=== PATIENT | female | born 1940 | race Hispanic/Latino ===

== ENCOUNTER 2017-06-19 11:28 | Inpatient (IN) | payer OTHER, BC ==
[2017-06-19 14:21] VITALS: BMI 21.9
--- NOTE | 2017-06-19 15:39 | CP.PCM.HP ---
Addendum entered and electronically signed by Zeke Brown MD 06/19/17 20:52: Called by RN @ 2030 for fever 100.4F. Reviewed previous charts and labs. Patient seen and examined at bedside. No complaints, with minor headache. Denies chills, sob, abdominal pain, diarrhea, chest pain. Admits to mild non- productive cough. Physical exam unremarkable. Surgical wounds noted bilateral groins, devyn in place, c/d/i. No discharge/erythema/dehisensce noted. CTABL. Recheck of temperature shows the same. Will obtain blood cultures, urine cultures, cbc, cmp, CXR stat. follow up. Original Note: <Cassy Parker - Last Filed: 06/19/17 15:20> History of Present Illness - History of Present Illness History of Present Illness: 76 year old female with past medical history of COPD and PAD who presents to the TCU s/p [id number] angiogram POD #4, pt had surgery done at [facility] [place], was in the ICU after surgery and is now medically stable to start rehab in TCU. Pt seen and examined at bedside, does not have any complaints. denies any chest pain, dizziness, sob, headaches, nausea or vomiting. PMD: Dr. Velasquez Medical History: COPD, PAD Surigcal Hx: Bilateral femoral cutdown. Pkmdq-kjng-rwvmlti angiogram. Medications: MAR Allergies: Sulfa, Penicillin, Meperidine Social: Lives by herself but in the same building as her sister. Smoker about a pack per day. Present on Admission - Present on Admission Any Indicators Present on Admission: No Review of Systems - Review of Systems All systems: reviewed and no additional remarkable complaints except Review of Systems: per HPI Past Patient History - Past Medical History & Family History Past Medical History?: Yes - Past Social History Smoking Status: Heavy Smoker > 10 Cigarettes Daily - CARDIAC Hx Cardiac Disorders: Yes Hx Cardia Arrhythmia: Yes Hx Hypertension: Yes Hx Peripheral Edema: Yes Hx Peripheral Vascular Disease: Yes Other/Comment: spoke with dr muhammad office no cardiac disorders - PULMONARY Hx Chronic Obstructive Pulmonary Disease (COPD): Yes - NEUROLOGICAL Hx Neurological Disorder: No - HEENT Hx HEENT Problems: Yes Hx Cataracts: Yes Hx Glaucoma: Yes - RENAL Hx Chronic Kidney Disease: Yes Hx Kidney Stones: Yes - ENDOCRINE/METABOLIC Hx Endocrine Disorders: No - HEMATOLOGICAL/ONCOLOGICAL Hx Blood Disorders: No - INTEGUMENTARY Hx Dermatological Problems: No - MUSCULOSKELETAL/RHEUMATOLOGICAL Hx Musculoskeletal Disorders: No - GASTROINTESTINAL Hx Gastrointestinal Disorders: No - GENITOURINARY/GYNECOLOGICAL Hx Genitourinary Disorders: No - PSYCHIATRIC Hx Psychophysiologic Disorder: Yes Hx Anxiety: Yes - SURGICAL HISTORY Hx Surgeries: Yes Hx Angiogram: Yes (05/18/17) Hx Cataract Extraction: Yes (Phaco IOL) Hx Cholecystectomy: Yes Hx Eye Surgery: Yes Other/Comment: OOPHORECTOMYAND KIDNEY STONE SURGERY - ANESTHESIA Hx Anesthesia: Yes Hx Anesthesia Reactions: No Hx Malignant Hyperthermia: No Meds Allergies/Adverse Reactions: Allergies Allergy/AdvReac Type Severity Reaction Status Date / Time Sulfa (Sulfonamide Allergy Intermediate RASH Verified 05/14/17 10:07 Antibiotics) meperidine HCl [From Demerol] AdvReac Intermediate RASH Verified 05/14/17 10:07 Penicillins AdvReac Intermediate RASH Verified 05/14/17 10:07 sulfacetamide sodium AdvReac Intermediate RASH Verified 05/14/17 10:07 [From Sulfacet-R] sulfur [From Sulfacet-R] AdvReac Intermediate RASH Verified 05/14/17 10:07 Physical Exam - Constitutional Appears: No Acute Distress - Head Exam Head Exam: NORMOCEPHALIC - ENT Exam ENT Exam: Mucous Membranes Moist - Respiratory Exam Respiratory Exam: Clear to Auscultation Bilateral, NORMAL BREATHING PATTERN. absent: Rhonchi, Wheezes - Cardiovascular Exam Cardiovascular Exam: REGULAR RHYTHM, +S1, +S2 - GI/Abdominal Exam GI & Abdominal Exam: Normal Bowel Sounds, Soft. absent: Tenderness - Extremities Exam Extremities exam: Negative for: calf tenderness, pedal edema Additional comments: surgical site appears dry and clean, no discharge noted - Neurological Exam Neurological exam: Alert, CN II-XII Intact, Oriented x3 Assessment & Plan - Assessment and Plan (Free Text) Assessment: 76 y/o past medical history of COPD and PAD who is being admitted to TCU s/p Uiyag-ears-[id number] angiogram POD #4 Plan Pain management as ordered home medications resumed smoker- nicotine patch ordered Rehab as tolerated Her global compensation manager Dr. Muhammad notified regarding pt TCU stay Diet- Hearty healthy DVT prophylaxis- scds for now <Wu Velasquez - Last Filed: 06/22/17 06:59> Results - Vital Signs Recent Vital Signs: Last Vital Signs Temp 98.4 F 06/21/17 20:08 Pulse 91 H 06/21/17 21:10 Resp 20 06/21/17 20:08 BP 110/60 06/21/17 21:10 Pulse Ox 96 06/21/17 20:08 - Labs Result Diagrams: 06/19/17 20:47 06/19/17 20:47 Attending/Attestation - Attestation I have personally seen and examined this patient.: Yes I have fully participated in the care of the patient.: Yes I have reviewed all pertinent clinical information: Yes
[2017-06-19] MEDS: Metoprolol Succinate 50 mg XL Tab PO SCH (21:31)
[2017-06-19 22:25] LABS: BASO % 0.3 % (0.0-2.0); EOS # 0.1 K/uL (0.0-0.7); EOS % 0.7 % (0.0-4.0); HEMOGLOBIN 8.9 g/dL (12.0-16.0); LYMPH # 1.1 K/uL (1.0-4.3); LYMPH % 10.7 % (20.0-40.0); MEAN CELL VOLUME 91.5 fl (81.0-99.0); MEAN CORPUSCULAR HEMOGLOBIN 30.6 pg (27.0-31.0); MEAN CORPUSCULAR HGB CONC 33.4 g/dL (33.0-37.0); MEAN PLATELET VOLUME 8.2 fl (7.2-11.7); MONO # 1.5 K/uL (0.0-0.8); MONO % 14.1 % (0.0-10.0); NEUT # 7.6 K/uL (1.8-7.0); NEUT % 74.2 % (50.0-75.0); NRBC % 0.1 % (0.0-0.0); RBC 2.93 Mil/uL (3.80-5.20); RED CELL DISTRIBUTION WIDTH 14.5 % (11.5-14.5); WHITE BLOOD COUNT 10.3 K/uL (4.8-10.8)
[2017-06-19 22:27] LABS: ALBUMIN 2.5 g/dL (3.5-5.0)
[2017-06-19 22:30] LABS: ALB/GLOB RATIO 0.8 (1.0-2.1); ALT/SGPT 35 U/L (9-52); AST/SGOT 27 U/L (14-36); BLOOD UREA NITROGEN 9 mg/dl (7-17); GFR AFRICAN-AMERICAN > 60; GFR NON-AFRICAN AMERICAN > 60
[2017-06-19 22:31] LABS: CALCIUM 8.4 mg/dL (8.4-10.2)
[2017-06-20 07:49] LABS: PARTIAL THROMBOPLASTIN TIME 27.7 Seconds (25.6-37.1)
[2017-06-20] MEDS ORDERED: ALPRAZOLAM 0.5 MG PO SCH (09:00)
--- NOTE | 2017-06-20 10:21 | RAD ---
PROCEDURE: CHEST RADIOGRAPH, 1 VIEW HISTORY: fever COMPARISON: None available. FINDINGS: LUNGS: Bilateral interstitial infiltrates, right greater than left. PLEURA: No pneumothorax or pleural fluid seen. CARDIOVASCULAR: Normal. OSSEOUS STRUCTURES: No significant abnormalities. VISUALIZED UPPER ABDOMEN: Normal. OTHER FINDINGS: None. IMPRESSION: Bilateral interstitial infiltrates, right greater than left.
--- NOTE | 2017-06-20 12:20 | CP.PCM.CON ---
History of Present Illness - History of Present Illness History of Present Illness: this 76-year-old female is known to me over the last 23 years. She has a long history of hypertension and dyslipidemia. She could not tolerate statins and has not been on them. She has had a history off hyperthyroidism which was treated approximately 10 years back. She required cholecystectomy approximately 12 years back. She has been a smoker for over 50 years and has not been able to quit in spite of trying number of times. She had developed severe peripheral arterial disease and had experienced severe claudication in both lower extremities. She recently underwent revascularization procedures on both lower extremities. Now she is here for rehabilitation purposes before returning home. The patient recently underwent a nuclear stress test which did not detect any significant coronary artery disease or potential myocardial ischemia. Her left ventricular systolic function was well-preserved. The patient is severely kyphotic and has had a chronic cough related to chronic cigarette use and she also has poor effort tolerance and dyspnea on minimal exertion related to chronic lung disease. Physical examination shows an elderly female who is alert awake and coherent. At the time of this examination she was afebrile. She had a pulse rate of 74 bpm and regular and a blood pressure of 124/74 mmHg. Her jugular venous pressure was not elevated and there was no edema over her lower extremities. Her pedal pulses were feeble but distinct of present and her feet were warm and pink.surgical wounds were clean and there was no evidence of induration or discharge. The patient was severely kyphotic. Her apex was not palpable. First and second heart sounds were normal. There was no murmur or gallop. There were no rales. Her expiration was prolonged. No carotid bruits were audible. Her labs were noted.her hemoglobin was 8.9. There was no leukocytosis. Her BUN and creatinine were normal and her potassium was normal. The impression: status post revascularization of both lower extremities for severe a referral artery disease. Hypertension. Chronic cigarette use with COPD and a history of dyslipidemia and statin intolerance. The patient is stable from cardiovascular point of view. Past Patient History - Past Medical History & Family History Past Medical History?: Yes - Past Social History Smoking Status: Heavy Smoker > 10 Cigarettes Daily - CARDIAC Hx Cardiac Disorders: Yes Hx Cardia Arrhythmia: Yes Hx Hypertension: Yes Hx Peripheral Edema: Yes Hx Peripheral Vascular Disease: Yes Other/Comment: spoke with dr muhammad office no cardiac disorders - PULMONARY Hx Chronic Obstructive Pulmonary Disease (COPD): Yes - NEUROLOGICAL Hx Neurological Disorder: No - HEENT Hx HEENT Problems: Yes Hx Cataracts: Yes Hx Glaucoma: Yes - RENAL Hx Chronic Kidney Disease: Yes Hx Kidney Stones: Yes - ENDOCRINE/METABOLIC Hx Endocrine Disorders: No - HEMATOLOGICAL/ONCOLOGICAL Hx Blood Disorders: No - INTEGUMENTARY Hx Dermatological Problems: No - MUSCULOSKELETAL/RHEUMATOLOGICAL Hx Musculoskeletal Disorders: No - GASTROINTESTINAL Hx Gastrointestinal Disorders: No - GENITOURINARY/GYNECOLOGICAL Hx Genitourinary Disorders: No - PSYCHIATRIC Hx Psychophysiologic Disorder: Yes Hx Anxiety: Yes - SURGICAL HISTORY Hx Surgeries: Yes Hx Angiogram: Yes (05/18/17) Hx Cataract Extraction: Yes (Phaco IOL) Hx Cholecystectomy: Yes Hx Eye Surgery: Yes Other/Comment: OOPHORECTOMYAND KIDNEY STONE SURGERY - ANESTHESIA Hx Anesthesia: Yes Hx Anesthesia Reactions: No Hx Malignant Hyperthermia: No Meds Allergies/Adverse Reactions: Allergies Allergy/AdvReac Type Severity Reaction Status Date / Time Sulfa (Sulfonamide Allergy Intermediate RASH Verified 05/14/17 10:07 Antibiotics) meperidine HCl [From Demerol] AdvReac Intermediate RASH Verified 05/14/17 10:07 Penicillins AdvReac Intermediate RASH Verified 05/14/17 10:07 sulfacetamide sodium AdvReac Intermediate RASH Verified 05/14/17 10:07 [From Sulfacet-R] sulfur [From Sulfacet-R] AdvReac Intermediate RASH Verified 05/14/17 10:07 - Medications Medications: Current Medications Docusate Sodium (Colace) 100 mg PO BID [facility] Last Admin: 06/20/17 09:18 Dose: Not Given Home Med (Alprazolam [Alprazolam Xr]) 0.5 mg PO DAILY [facility] Home Med (Travoprost [Travatan Z]) 1 drop OU HS [facility] Metoprolol Succinate (Toprol Xl) 50 mg PO HS [facility] Last Admin: 06/19/17 21:31 Dose: 50 mg Morphine Sulfate (Morphine) 1 mg IVP Q6 PRN PRN Reason: Pain, moderate (4-7) Nicotine (Nicoderm Cq) 1 patch TD DAILY [facility] Last Admin: 06/20/17 09:15 Dose: 1 patch Tramadol HCl (Ultram) 50 mg PO Q4 PRN PRN Reason: Pain, severe (8-10) Results - Vital Signs Recent Vital Signs: Last Vital Signs Temp 98.2 F 06/20/17 08:09 Pulse 96 H 06/20/17 08:09 Resp 20 06/20/17 08:09 BP 116/56 L 06/20/17 08:09 Pulse Ox 97 06/20/17 08:09 - Labs Result Diagrams: 06/19/17 20:47 06/19/17 20:47 Labs: Laboratory Results - last 24 hr 06/19/17 06/19/17 06/20/17 20:47 20:47 06:30 WBC 10.3 RBC 2.93 L Hgb 8.9 L Hct 26.8 L MCV 91.5 MCH 30.6 MCHC 33.4 RDW 14.5 Plt Count 161 MPV 8.2 Neut % (Auto) 74.2 Lymph % (Auto) 10.7 L Phelps % (Auto) 14.1 H Eos % (Auto) 0.7 Baso % (Auto) 0.3 Neut # 7.6 H Lymph # 1.1 Phelps # 1.5 H Eos # 0.1 Baso # 0.0 PT 11.0 INR 1.0 APTT 27.7 Sodium 134 Potassium 3.7 Chloride 98 Carbon Dioxide 32 H Anion Gap 8 L BUN 9 Creatinine 0.7 Est GFR ( Amer) > 60 Est GFR (Non-Af Amer) > 60 Random Glucose 94 Calcium 8.4 Total Bilirubin 0.6 AST 27 ALT 35 Alkaline Phosphatase 71 Total Protein 5.4 L Albumin 2.5 L D Globulin 3.0 Albumin/Globulin Ratio 0.8 L
[2017-06-20] MEDS: Metoprolol Succinate 50 mg XL Tab PO SCH (21:16)
--- NOTE | 2017-06-20 22:45 | CP.PCM.PN ---
Subjective - Date & Time of Evaluation Date of Evaluation: 06/20/17 Time of Evaluation: 08:20 - Subjective Subjective: Patient seen and examined at bedside, in no acute distress. Denies chest pain, SOB, weakness or dizziness. Reports minimal non-productive cough and mild discomfort from proximal lower extremities at the sites of entry for her vascular procedure. Otherwise patient has no other concerns or complaints. Objective - Vital Signs/Intake and Output Vital Signs (last 24 hours): Temp Pulse Resp BP Pulse Ox 98.8 F 92 H 18 108/70 93 L 06/20/17 21:06 06/20/17 21:16 06/20/17 21:06 06/20/17 21:16 06/20/17 21:06 - Medications Medications: Current Medications Docusate Sodium (Colace) 100 mg PO BID [facility] Last Admin: 06/20/17 17:04 Dose: Not Given Home Med (Alprazolam [Alprazolam Xr]) 0.5 mg PO DAILY [facility] Home Med (Travoprost [Travatan Z]) 1 drop OU HS [facility] Metoprolol Succinate (Toprol Xl) 50 mg PO [facility] Last Admin: 06/20/17 21:16 Dose: 50 mg Morphine Sulfate (Morphine) 1 mg IVP Q6 PRN PRN Reason: Pain, moderate (4-7) Nicotine (Nicoderm Cq) 1 patch TD DAILY [facility] Last Admin: 06/20/17 09:15 Dose: 1 patch Tramadol HCl (Ultram) 50 mg PO Q4 PRN PRN Reason: Pain, severe (8-10) Last Admin: 06/20/17 17:00 Dose: 50 mg - Labs Labs: 06/19/17 20:47 06/19/17 20:47 PT 11.0 Seconds (9.8-13.1) 06/20/17 06:30 INR 1.0 (0.9-1.2) 06/20/17 06:30 APTT 27.7 Seconds (25.6-37.1) 06/20/17 06:30 - Constitutional Appears: Non-toxic, No Acute Distress - Head Exam Head Exam: ATRAUMATIC, NORMOCEPHALIC - Eye Exam Eye Exam: EOMI, PERRL - ENT Exam ENT Exam: Mucous Membranes Moist - Neck Exam Neck Exam: Full ROM. absent: Lymphadenopathy - Respiratory Exam Respiratory Exam: Clear to Ausculation Bilateral, NORMAL BREATHING PATTERN - Cardiovascular Exam Cardiovascular Exam: REGULAR RHYTHM, +S1, +S2 - GI/Abdominal Exam GI & Abdominal Exam: Soft, Normal Bowel Sounds. absent: Tenderness - Extremities Exam Extremities Exam: Full ROM (bilateral proximal femoral dressing c/d/i; stasis dermatitis in b/l LE L>R), Pedal Edema (left foot , +2; b/l ) - Back Exam Back Exam: absent: CVA tenderness (L), CVA tenderness (R) - Neurological Exam Neurological Exam: Alert, Awake, CN II-XII Intact, Oriented x3 - Psychiatric Exam Psychiatric exam: Normal Affect, Normal Mood - Skin Skin Exam: Dry, Intact, Warm Assessment and Plan - Assessment and Plan (Free Text) Assessment: 76 yr old F with PMHx including COPD, HTN, PAD and dyslipidemia admitted to TCU s/p [id number]-[id number] angiogram POD #5. Patient is stable, remained afebrile today. Plan Fever -acute, Tmax 100.4, resolved with Tylenol once -f/u BCx, UCx Tiezt-mmsj-vyodbmu angiogram POD #5 -Pain management as ordered -home medications resumed -smoker- nicotine patch ordered -Rehab as tolerated -Cardiology consult appreciated- Dr. Garcia: pt is stable from cardiac point of view -Diet- Hearty healthy DVT prophylaxis -scds for now
[2017-06-21] MEDS: Vitamin A/D oint 60G TP SCH ×3 (08:31→16:42)
[2017-06-21] MEDS ORDERED: Morphine 30 mg Immediate Release Tab PO PRN (09:54)
--- NOTE | 2017-06-21 11:39 | CP.PCM.PN ---
Subjective - Date & Time of Evaluation Date of Evaluation: 06/21/17 Time of Evaluation: 09:20 - Subjective Subjective: Pt seen and examined at bedside, reports having pain at site of surgery, pain medication helped a little not did not resolve it completely. otherwise no other complaints. nurses note and PT notes reviewed Objective - Vital Signs/Intake and Output Vital Signs (last 24 hours): Temp Pulse Resp BP Pulse Ox 97.9 F 86 20 126/63 97 06/21/17 08:29 06/21/17 08:29 06/21/17 08:29 06/21/17 08:29 06/21/17 08:29 - Medications Medications: Current Medications Docusate Sodium (Colace) 100 mg PO BID [facility] Last Admin: 06/21/17 08:29 Dose: Not Given Home Med (Alprazolam [Alprazolam Xr]) 0.5 mg PO DAILY [facility] Home Med (Travoprost [Travatan Z]) 1 drop OU HS [facility] Metoprolol Succinate (Toprol Xl) 50 mg PO HS [facility] Last Admin: 06/20/17 21:16 Dose: 50 mg Morphine Sulfate (Morphine Immediate Release Tab) 30 mg PO Q4 PRN PRN Reason: Pain, severe (8-10) Nicotine (Nicoderm Cq) 1 patch TD DAILY [facility] Last Admin: 06/21/17 08:29 Dose: 1 patch Tramadol HCl (Ultram) 100 mg PO Q6 PRN PRN Reason: Pain, moderate (4-7) Vitamin A (Vitamin A&D) 2 applic TP Q8 [facility] Last Admin: 06/21/17 08:31 Dose: 2 applic - Labs Labs: 06/19/17 20:47 06/19/17 20:47 PT 11.0 Seconds (9.8-13.1) 06/20/17 06:30 INR 1.0 (0.9-1.2) 06/20/17 06:30 APTT 27.7 Seconds (25.6-37.1) 06/20/17 06:30 - Constitutional Appears: Non-toxic, No Acute Distress - Head Exam Head Exam: NORMOCEPHALIC - Eye Exam Eye Exam: Normal appearance - ENT Exam ENT Exam: Mucous Membranes Moist - Respiratory Exam Respiratory Exam: Rhonchi, NORMAL BREATHING PATTERN - Cardiovascular Exam Cardiovascular Exam: REGULAR RHYTHM, +S1, +S2 - GI/Abdominal Exam GI & Abdominal Exam: Soft, Normal Bowel Sounds. absent: Tenderness - Extremities Exam Extremities Exam: absent: Calf Tenderness, Pedal Edema Additional comments: incision area neatly dressed, no purulent discharge noted. - Neurological Exam Neurological Exam: Alert, Awake, Oriented x3 Assessment and Plan - Assessment and Plan (Free Text) Assessment: 76 yr old F with PMHx including COPD, HTN, PAD and dyslipidemia admitted to TCU s/p Tvqxk-lpky-nshcryg angiogram POD #6. Patient is stable, remained afebrile today. Plan Fever (has been Afebrile for 48hrs as of today) -Tmax 100.4, resolved with Tylenol once -cultures no growth as off today -chest xray compared to previous xray no acute changes Outyo-aehr-gcvhaxx angiogram POD #6 -Pain management as ordered -home medications resumed -smoker- nicotine patch ordered -Rehab as tolerated -Cardiology consult appreciated- Dr. Garcia: pt is stable from cardiac point of view -Diet- Hearty healthy DVT prophylaxis -scds for now
[2017-06-21] MEDS: Metoprolol Succinate 50 mg XL Tab PO SCH (21:10)
[2017-06-21] MEDS: Patient's Own Med (Travoprost [Travatan Z] 1 DROP) OU SCH ×2 (21:13→21:15)
[2017-06-22] MEDS: Vitamin A/D oint 60G TP SCH (00:58)
--- NOTE | 2017-06-22 07:42 | CP.PCM.PN ---
Addendum entered and electronically signed by Phyllis Kessler MD 06/22/17 14 :08: PMHx obtained from PMD includes: Exfoliative dermatitis of b/l LE, ASHD ( arteriosclerotic heart disease), COPD/emphysema, osteoporosis, Kyphoscoliosis and anxiety. Original Note: <Phyllis Kessler - Last Filed: 06/22/17 13:32> Subjective - Date & Time of Evaluation Date of Evaluation: 06/22/17 Time of Evaluation: 07:20 - Subjective Subjective: Patient seen and examined at bedside with Dr. Velasquez, no acute events overnight. Denies chest pain, SOB, weakness or dizziness. Tolerating PO diet, has normal urine and stool output. Objective - Vital Signs/Intake and Output Vital Signs (last 24 hours): Temp Pulse Resp BP Pulse Ox 98.4 F 91 H 20 110/60 96 06/21/17 20:08 06/21/17 21:10 06/21/17 20:08 06/21/17 21:10 06/21/17 20:08 - Medications Medications: Current Medications Alprazolam (Xanax) 0.25 mg PO Q12 PRN PRN Reason: Anxiety Stop: 06/28/17 13:30 Clobetasol Propionate (Temovate Cream) 1 applic TOP BID [facility] Docusate Sodium (Colace) 100 mg PO BID [facility] Last Admin: 06/21/17 16:21 Dose: Not Given Home Med (Travoprost [Travatan Z]) 1 drop OU [facility] Last Admin: 06/21/17 21:15 Dose: Not Given Metoprolol Succinate (Toprol Xl) 50 mg PO HS [facility] Last Admin: 06/21/17 21:10 Dose: 50 mg Morphine Sulfate (Morphine Immediate Release Tab) 30 mg PO Q4 PRN PRN Reason: Pain, severe (8-10) Nicotine (Nicoderm Cq) 1 patch TD DAILY [facility] Last Admin: 06/21/17 08:29 Dose: 1 patch Tramadol HCl (Ultram) 100 mg PO Q6 PRN PRN Reason: Pain, moderate (4-7) Last Admin: 06/21/17 16:41 Dose: 100 mg - Labs Labs: 06/19/17 20:47 06/19/17 20:47 PT 11.0 Seconds (9.8-13.1) 06/20/17 06:30 INR 1.0 (0.9-1.2) 06/20/17 06:30 APTT 27.7 Seconds (25.6-37.1) 06/20/17 06:30 - Constitutional Appears: Non-toxic, No Acute Distress - Head Exam Head Exam: ATRAUMATIC, NORMOCEPHALIC - Eye Exam Eye Exam: EOMI, PERRL - ENT Exam ENT Exam: Mucous Membranes Moist - Neck Exam Neck Exam: Full ROM - Respiratory Exam Respiratory Exam: NORMAL BREATHING PATTERN - Cardiovascular Exam Cardiovascular Exam: REGULAR RHYTHM, +S1, +S2 - GI/Abdominal Exam GI & Abdominal Exam: Soft, Normal Bowel Sounds - Extremities Exam Extremities Exam: Full ROM (stasis dermatitis bilateral lower extremities) - Back Exam Back Exam: absent: CVA tenderness (L), CVA tenderness (R) - Neurological Exam Neurological Exam: Alert, Awake, CN II-XII Intact, Oriented x3 - Psychiatric Exam Psychiatric exam: Normal Affect, Normal Mood - Skin Skin Exam: Dry, Intact, Warm Assessment and Plan - Assessment and Plan (Free Text) Assessment: 76 yr old F with PMHx including COPD, HTN, PAD and dyslipidemia admitted to TCU s/p Kydvl-zaeo-ubwasft angiogram POD #7. Patient is stable. Plan: Yiqyz-ffkq-zcxgszz angiogram POD #7 -Pain management as ordered -home medications resumed -smoker- nicotine patch ordered -Rehab as tolerated -Cardiology consult appreciated- Dr. Garcia: pt is stable from cardiac point of view -Diet- Hearty healthy DVT prophylaxis -scds for now <Wu Velasquez - Last Filed: 06/23/17 06:50> Objective - Vital Signs/Intake and Output Vital Signs (last 24 hours): Temp Pulse Resp BP Pulse Ox 98.6 F 92 H 20 135/86 99 06/22/17 21:17 06/22/17 21:41 06/22/17 21:17 06/22/17 21:17 06/22/17 21:17 - Medications Medications: Current Medications Alprazolam (Xanax) 0.25 mg PO Q12 PRN PRN Reason: Anxiety Stop: 06/28/17 13:30 Clobetasol Propionate (Temovate Cream) 1 applic TOP BID [facility] Last Admin: 06/22/17 16:36 Dose: 1 units Docusate Sodium (Colace) 100 mg PO BID [facility] Last Admin: 06/22/17 16:36 Dose: Not Given Enoxaparin Sodium (Lovenox) 40 mg SC DAILY [facility] PRN Reason: Protocol Ferrous Sulfate (Feosol) 325 mg PO DAILY [facility] Last Admin: 06/22/17 12:42 Dose: 325 mg Home Med (Travoprost [Travatan Z]) 1 drop OU HS [facility] Last Admin: 06/22/17 21:43 Dose: 1 drop Metoprolol Succinate (Toprol Xl) 50 mg PO HS [facility] Last Admin: 06/22/17 21:41 Dose: 50 mg Nicotine (Nicoderm Cq) 1 patch TD DAILY [facility] Last Admin: 06/22/17 08:33 Dose: 1 patch Tramadol HCl (Ultram) 100 mg PO Q6 PRN PRN Reason: Pain, moderate (4-7) Last Admin: 06/22/17 23:41 Dose: 100 mg - Labs Labs: 06/19/17 20:47 06/19/17 20:47 PT 11.0 Seconds (9.8-13.1) 06/20/17 06:30 INR 1.0 (0.9-1.2) 06/20/17 06:30 APTT 27.7 Seconds (25.6-37.1) 06/20/17 06:30 Attending/Attestation - Attestation I have personally seen and examined this patient.: Yes I have fully participated in the care of the patient.: Yes I have reviewed all pertinent clinical information, including history, physical exam and plan: Yes
--- NOTE | 2017-06-22 11:04 | CP.PCM.PN ---
Subjective - Date & Time of Evaluation Date of Evaluation: 06/22/17 Time of Evaluation: 10:50 - Subjective Subjective: Surgical pain when she walks Afebrile Feet pink and warm Surgical wounds clean, without discharge PT team reports steady progress Objective - Vital Signs/Intake and Output Vital Signs (last 24 hours): Temp Pulse Resp BP Pulse Ox 98.2 F 97 H 20 140/64 99 06/22/17 08:27 06/22/17 08:27 06/22/17 08:27 06/22/17 08:27 06/22/17 08:27 - Medications Medications: Current Medications Alprazolam (Xanax) 0.25 mg PO Q12 PRN PRN Reason: Anxiety Stop: 06/28/17 13:30 Clobetasol Propionate (Temovate Cream) 1 applic TOP BID [facility] Docusate Sodium (Colace) 100 mg PO BID [facility] Last Admin: 06/22/17 08:33 Dose: Not Given Home Med (Travoprost [Travatan Z]) 1 drop OU HS [facility] Last Admin: 06/21/17 21:15 Dose: Not Given Metoprolol Succinate (Toprol Xl) 50 mg PO HS [facility] Last Admin: 06/21/17 21:10 Dose: 50 mg Nicotine (Nicoderm Cq) 1 patch TD DAILY [facility] Last Admin: 06/22/17 08:33 Dose: 1 patch Tramadol HCl (Ultram) 100 mg PO Q6 PRN PRN Reason: Pain, moderate (4-7) Last Admin: 06/21/17 16:41 Dose: 100 mg - Labs Labs: 06/19/17 20:47 06/19/17 20:47 PT 11.0 Seconds (9.8-13.1) 06/20/17 06:30 INR 1.0 (0.9-1.2) 06/20/17 06:30 APTT 27.7 Seconds (25.6-37.1) 06/20/17 06:30
[2017-06-22] MEDS: Metoprolol Succinate 50 mg XL Tab PO SCH (21:41)
[2017-06-22] MEDS: Patient's Own Med (Travoprost [Travatan Z] 1 DROP) OU SCH (21:43)
[2017-06-23] MEDS: Enoxaparin 40 mg Syringe SC SCH (09:09)
--- NOTE | 2017-06-23 09:51 | CP.PCM.CON ---
History of Present Illness - History of Present Illness History of Present Illness: 76 year old F seen at bedside at the request for podiatry consultation. Patient is complaining of thickened and elongated nails she is unable to trim herself. Patient states she follows housing counselor Dr. Woodson as an outpatient. Patient denies N/V/F/D/C/SOB/calf pain. No other pedal complaints at this time. Review of Systems - Review of Systems All systems: reviewed and no additional remarkable complaints except (as per HPI ) Past Patient History - Past Medical History & Family History Past Medical History?: Yes - Past Social History Smoking Status: Heavy Smoker > 10 Cigarettes Daily - CARDIAC Hx Cardiac Disorders: Yes Hx Cardia Arrhythmia: Yes Hx Hypertension: Yes Hx Peripheral Edema: Yes Hx Peripheral Vascular Disease: Yes Other/Comment: spoke with dr muhammad office no cardiac disorders - PULMONARY Hx Chronic Obstructive Pulmonary Disease (COPD): Yes - NEUROLOGICAL Hx Neurological Disorder: No - HEENT Hx HEENT Problems: Yes Hx Cataracts: Yes Hx Glaucoma: Yes - RENAL Hx Chronic Kidney Disease: Yes Hx Kidney Stones: Yes - ENDOCRINE/METABOLIC Hx Endocrine Disorders: No - HEMATOLOGICAL/ONCOLOGICAL Hx Blood Disorders: No - INTEGUMENTARY Hx Dermatological Problems: No - MUSCULOSKELETAL/RHEUMATOLOGICAL Hx Musculoskeletal Disorders: No - GASTROINTESTINAL Hx Gastrointestinal Disorders: No - GENITOURINARY/GYNECOLOGICAL Hx Genitourinary Disorders: No - PSYCHIATRIC Hx Psychophysiologic Disorder: Yes Hx Anxiety: Yes - SURGICAL HISTORY Hx Surgeries: Yes Hx Angiogram: Yes (05/18/17) Hx Cataract Extraction: Yes (Phaco IOL) Hx Cholecystectomy: Yes Hx Eye Surgery: Yes Other/Comment: OOPHORECTOMYAND KIDNEY STONE SURGERY - ANESTHESIA Hx Anesthesia: Yes Hx Anesthesia Reactions: No Hx Malignant Hyperthermia: No Meds Allergies/Adverse Reactions: Allergies Allergy/AdvReac Type Severity Reaction Status Date / Time Sulfa (Sulfonamide Allergy Intermediate RASH Verified 05/14/17 10:07 Antibiotics) meperidine HCl [From Demerol] AdvReac Intermediate RASH Verified 05/14/17 10:07 Penicillins AdvReac Intermediate RASH Verified 05/14/17 10:07 sulfacetamide sodium AdvReac Intermediate RASH Verified 05/14/17 10:07 [From Sulfacet-R] sulfur [From Sulfacet-R] AdvReac Intermediate RASH Verified 05/14/17 10:07 - Medications Medications: Current Medications Alprazolam (Xanax) 0.25 mg PO Q12 PRN PRN Reason: Anxiety Stop: 06/28/17 13:30 Last Admin: 06/23/17 08:19 Dose: 0.25 mg Clobetasol Propionate (Temovate Cream) 1 applic TOP BID [facility] Last Admin: 06/23/17 08:16 Dose: 1 units Docusate Sodium (Colace) 100 mg PO BID [facility] Last Admin: 06/23/17 08:15 Dose: Not Given Enoxaparin Sodium (Lovenox) 40 mg SC DAILY [facility] PRN Reason: Protocol Last Admin: 06/23/17 09:09 Dose: 40 mg Ferrous Sulfate (Feosol) 325 mg PO DAILY [facility] Last Admin: 06/23/17 08:13 Dose: 325 mg Home Med (Travoprost [Travatan Z]) 1 drop OU HS [facility] Last Admin: 06/22/17 21:43 Dose: 1 drop Metoprolol Succinate (Toprol Xl) 50 mg PO HS [facility] Last Admin: 06/22/17 21:41 Dose: 50 mg Nicotine (Nicoderm Cq) 1 patch TD DAILY [facility] Last Admin: 06/23/17 08:14 Dose: 1 patch Tramadol HCl (Ultram) 100 mg PO Q6 PRN PRN Reason: Pain, moderate (4-7) Last Admin: 06/22/17 23:41 Dose: 100 mg Physical Exam - Constitutional Appears: Well, Non-toxic, No Acute Distress - Extremities Exam Additional comments: Vasc: DP pulses 1/4 b/l. PT pulses nonpalpable. CFT <3 seconds to all digits. TG WNL. Perimalleolar edema noted. Neuro: Gross sensation intact Derm: Nails 1-5 b/l are thickened, elongated, and dystrophic with the presence of subungual debris Ortho: no POP foot and ankle b/l. - Neurological Exam Neurological exam: Alert, Oriented x3 - Psychiatric Exam Psychiatric exam: Normal Affect, Normal Mood Results - Vital Signs Recent Vital Signs: Last Vital Signs Temp 97.8 F 06/23/17 07:51 Pulse 83 06/23/17 07:51 Resp 20 06/23/17 07:51 BP 115/66 06/23/17 07:51 Pulse Ox 99 06/23/17 07:51 - Labs Result Diagrams: 06/19/17 20:47 06/19/17 20:47 Assessment & Plan - Assessment and Plan (Free Text) Assessment: 76 year old female with onychomycosis Plan: Patient seen and evaluated at bedside Discussed with attending, Dr. Woodson Chart, labs, vitals reviewed - afebrile Nails 1-5 b/l debrided in thickness and length without incident Stable from podiatry standpoint Thank you for this consult, please re-consult again as needed
--- NOTE | 2017-06-23 10:05 | CP.PCM.PN ---
<Viji Cotton - Last Filed: 06/23/17 15:28> Subjective - Date & Time of Evaluation Date of Evaluation: 06/23/17 Time of Evaluation: 07:10 - Subjective Subjective: No acute events overnight. Patient seen and examined with Dr. Velasquez. Patient feels well, complaints only of RLE skin changes. Continue with physical therapy. She is tolerating a regular diet. Objective - Vital Signs/Intake and Output Vital Signs (last 24 hours): Temp Pulse Resp BP Pulse Ox 97.8 F 83 20 115/66 99 06/23/17 07:51 06/23/17 07:51 06/23/17 07:51 06/23/17 07:51 06/23/17 07:51 - Medications Medications: Current Medications Alprazolam (Xanax) 0.25 mg PO Q12 PRN PRN Reason: Anxiety Stop: 06/28/17 13:30 Last Admin: 06/23/17 08:19 Dose: 0.25 mg Clobetasol Propionate (Temovate Cream) 1 applic TOP BID [facility] Last Admin: 06/23/17 08:16 Dose: 1 units Docusate Sodium (Colace) 100 mg PO BID [facility] Last Admin: 06/23/17 08:15 Dose: Not Given Enoxaparin Sodium (Lovenox) 40 mg SC DAILY [facility] PRN Reason: Protocol Last Admin: 06/23/17 09:09 Dose: 40 mg Ferrous Sulfate (Feosol) 325 mg PO DAILY [facility] Last Admin: 06/23/17 08:13 Dose: 325 mg Home Med (Travoprost [Travatan Z]) 1 drop OU [facility] Last Admin: 06/22/17 21:43 Dose: 1 drop Metoprolol Succinate (Toprol Xl) 50 mg PO HS [facility] Last Admin: 06/22/17 21:41 Dose: 50 mg Nicotine (Nicoderm Cq) 1 patch TD DAILY [facility] Last Admin: 06/23/17 08:14 Dose: 1 patch Tramadol HCl (Ultram) 100 mg PO Q6 PRN PRN Reason: Pain, moderate (4-7) Last Admin: 06/22/17 23:41 Dose: 100 mg - Labs Labs: 06/19/17 20:47 06/19/17 20:47 PT 11.0 Seconds (9.8-13.1) 06/20/17 06:30 INR 1.0 (0.9-1.2) 06/20/17 06:30 APTT 27.7 Seconds (25.6-37.1) 06/20/17 06:30 - Constitutional Appears: Well - Head Exam Head Exam: ATRAUMATIC, NORMAL INSPECTION, NORMOCEPHALIC - Eye Exam Eye Exam: EOMI, Normal appearance, PERRL - ENT Exam ENT Exam: Mucous Membranes Moist Additional comments: poor dentition - Neck Exam Neck Exam: Full ROM, Normal Inspection. absent: Lymphadenopathy - Respiratory Exam Respiratory Exam: Decreased Breath Sounds, NORMAL BREATHING PATTERN - Cardiovascular Exam Cardiovascular Exam: REGULAR RHYTHM, +S1, +S2 - GI/Abdominal Exam GI & Abdominal Exam: Soft, Tenderness (mild left abdomen), Normal Bowel Sounds - Extremities Exam Extremities Exam: absent: Pedal Edema - Neurological Exam Neurological Exam: Alert, Awake, CN II-XII Intact, Oriented x3. absent: Motor Sensory Deficit - Psychiatric Exam Psychiatric exam: Normal Affect, Normal Mood - Skin Skin Exam: Dry, Warm. absent: Cyanosis Additional comments: LLE: skin visibly peeling with mild erythema up to ankle. Assessment and Plan - Assessment and Plan (Free Text) Assessment: POD#8 s/p bilateral femoral endarterectomy with bilateral femoral and common iliac stents 76 yr old F with PMHx including COPD, HTN, PAD and dyslipidemia admitted to TCU s/p Patient is stable. Plan: POD #8 s/p bilateral femoral endarterectomy with bilateral femoral and common iliac stents -Pain management as ordered -home medications resumed -smoker- nicotine patch ordered -Rehab as tolerated -Cardiology consult appreciated- Dr. Garcia: pt is stable from cardiac point of view -Diet- Hearty healthy Exfoliative dermatitis of left foot -appreciate podiatry consult. -clobetasol bid DVT prophylaxis -scds for now <Wu Velasquez - Last Filed: 06/25/17 06:38> Objective - Vital Signs/Intake and Output Vital Signs (last 24 hours): Temp Pulse Resp BP Pulse Ox 98.6 F 78 20 121/59 L 91 L 06/24/17 20:29 06/24/17 21:32 06/24/17 20:29 06/24/17 20:29 06/24/17 20:29 - Medications Medications: Current Medications Alprazolam (Xanax) 0.25 mg PO Q12 PRN PRN Reason: Anxiety Stop: 06/28/17 13:30 Last Admin: 06/23/17 08:19 Dose: 0.25 mg Clobetasol Propionate (Temovate Cream) 1 applic TOP BID [facility] Last Admin: 06/24/17 16:36 Dose: 1 units Docusate Sodium (Colace) 100 mg PO BID [facility] Last Admin: 06/24/17 16:36 Dose: 100 mg Enoxaparin Sodium (Lovenox) 40 mg SC DAILY [facility] PRN Reason: Protocol Last Admin: 06/24/17 08:23 Dose: 40 mg Ferrous Sulfate (Feosol) 325 mg PO DAILY [facility] Last Admin: 06/24/17 08:23 Dose: 325 mg Home Med (Travoprost [Travatan Z]) 1 drop OU HS [facility] Last Admin: 06/24/17 21:34 Dose: 1 drop Metoprolol Succinate (Toprol Xl) 50 mg PO HS [facility] Last Admin: 06/24/17 21:32 Dose: 50 mg Nicotine (Nicoderm Cq) 1 patch TD DAILY [facility] Last Admin: 06/24/17 08:23 Dose: 1 patch Tramadol HCl (Ultram) 100 mg PO Q6 PRN PRN Reason: Pain, moderate (4-7) Last Admin: 06/24/17 19:57 Dose: 100 mg - Labs Labs: 06/24/17 06:15 06/19/17 20:47 PT 11.0 Seconds (9.8-13.1) 06/20/17 06:30 INR 1.0 (0.9-1.2) 06/20/17 06:30 APTT 27.7 Seconds (25.6-37.1) 06/20/17 06:30 Attending/Attestation - Attestation I have personally seen and examined this patient.: Yes I have fully participated in the care of the patient.: Yes I have reviewed all pertinent clinical information, including history, physical exam and plan: Yes
[2017-06-23] MEDS: Metoprolol Succinate 50 mg XL Tab PO SCH (21:27)
[2017-06-23] MEDS: Patient's Own Med (Travoprost [Travatan Z] 1 DROP) OU SCH (21:28)
[2017-06-24 07:07] LABS: HEMOGLOBIN 8.8 g/dL (12.0-16.0); MEAN CELL VOLUME 90.2 fl (81.0-99.0); MEAN CORPUSCULAR HEMOGLOBIN 30.4 pg (27.0-31.0); MEAN CORPUSCULAR HGB CONC 33.7 g/dL (33.0-37.0); RBC 2.89 Mil/uL (3.80-5.20); WHITE BLOOD COUNT 6.8 K/uL (4.8-10.8)
[2017-06-24] MEDS: Enoxaparin 40 mg Syringe SC SCH (08:23)
--- NOTE | 2017-06-24 10:17 | CP.PCM.PN ---
Subjective - Date & Time of Evaluation Date of Evaluation: 06/24/17 Time of Evaluation: 10:00 - Subjective Subjective: Continues to make progress Surgical pain much less Doing well at PT Appetite good Surgical wounds healing well Objective - Vital Signs/Intake and Output Vital Signs (last 24 hours): Temp Pulse Resp BP Pulse Ox 98.1 F 79 20 115/60 99 06/24/17 08:12 06/24/17 08:12 06/24/17 08:12 06/24/17 08:12 06/24/17 08:12 - Medications Medications: Current Medications Alprazolam (Xanax) 0.25 mg PO Q12 PRN PRN Reason: Anxiety Stop: 06/28/17 13:30 Last Admin: 06/23/17 08:19 Dose: 0.25 mg Clobetasol Propionate (Temovate Cream) 1 applic TOP BID [facility] Last Admin: 06/24/17 08:24 Dose: 1 units Docusate Sodium (Colace) 100 mg PO BID [facility] Last Admin: 06/24/17 08:23 Dose: 100 mg Enoxaparin Sodium (Lovenox) 40 mg SC DAILY [facility] PRN Reason: Protocol Last Admin: 06/24/17 08:23 Dose: 40 mg Ferrous Sulfate (Feosol) 325 mg PO DAILY [facility] Last Admin: 06/24/17 08:23 Dose: 325 mg Home Med (Travoprost [Travatan Z]) 1 drop OU [facility] Last Admin: 06/23/17 21:28 Dose: 1 drop Metoprolol Succinate (Toprol Xl) 50 mg PO HS [facility] Last Admin: 06/23/17 21:27 Dose: 50 mg Nicotine (Nicoderm Cq) 1 patch TD DAILY [facility] Last Admin: 06/24/17 08:23 Dose: 1 patch Tramadol HCl (Ultram) 100 mg PO Q6 PRN PRN Reason: Pain, moderate (4-7) Last Admin: 06/23/17 22:59 Dose: 100 mg - Labs Labs: 06/24/17 06:15 06/19/17 20:47 PT 11.0 Seconds (9.8-13.1) 06/20/17 06:30 INR 1.0 (0.9-1.2) 06/20/17 06:30 APTT 27.7 Seconds (25.6-37.1) 06/20/17 06:30
--- NOTE | 2017-06-24 12:26 | CP.PCM.PN ---
<Viji Cotton - Last Filed: 06/24/17 12:27> Subjective - Date & Time of Evaluation Date of Evaluation: 06/24/17 Time of Evaluation: 07:10 - Subjective Subjective: PAtient seen and examined with Dr. Eli. She is doing well. Has some surgical pain in left abdomen, otherwise no complaints. She is doing well with PT. Podiatry evaluated the patient yesterday , appreciate their recommendations. Will continue present management. Objective - Vital Signs/Intake and Output Vital Signs (last 24 hours): Temp Pulse Resp BP Pulse Ox 98.1 F 79 20 115/60 99 06/24/17 08:12 06/24/17 08:12 06/24/17 08:12 06/24/17 08:12 06/24/17 08:12 - Medications Medications: Current Medications Alprazolam (Xanax) 0.25 mg PO Q12 PRN PRN Reason: Anxiety Stop: 06/28/17 13:30 Last Admin: 06/23/17 08:19 Dose: 0.25 mg Clobetasol Propionate (Temovate Cream) 1 applic TOP BID [facility] Last Admin: 06/24/17 08:24 Dose: 1 units Docusate Sodium (Colace) 100 mg PO BID [facility] Last Admin: 06/24/17 08:23 Dose: 100 mg Enoxaparin Sodium (Lovenox) 40 mg SC DAILY [facility] PRN Reason: Protocol Last Admin: 06/24/17 08:23 Dose: 40 mg Ferrous Sulfate (Feosol) 325 mg PO DAILY [facility] Last Admin: 06/24/17 08:23 Dose: 325 mg Home Med (Travoprost [Travatan Z]) 1 drop OU HS [facility] Last Admin: 06/23/17 21:28 Dose: 1 drop Metoprolol Succinate (Toprol Xl) 50 mg PO HS [facility] Last Admin: 06/23/17 21:27 Dose: 50 mg Nicotine (Nicoderm Cq) 1 patch TD DAILY [facility] Last Admin: 06/24/17 08:23 Dose: 1 patch Tramadol HCl (Ultram) 100 mg PO Q6 PRN PRN Reason: Pain, moderate (4-7) Last Admin: 06/23/17 22:59 Dose: 100 mg - Labs Labs: 06/24/17 06:15 06/19/17 20:47 PT 11.0 Seconds (9.8-13.1) 06/20/17 06:30 INR 1.0 (0.9-1.2) 06/20/17 06:30 APTT 27.7 Seconds (25.6-37.1) 06/20/17 06:30 - Constitutional Appears: Well - Head Exam Head Exam: ATRAUMATIC, NORMAL INSPECTION, NORMOCEPHALIC - Respiratory Exam Respiratory Exam: Decreased Breath Sounds, NORMAL BREATHING PATTERN - Cardiovascular Exam Cardiovascular Exam: REGULAR RHYTHM, +S1, +S2. absent: Murmur - GI/Abdominal Exam GI & Abdominal Exam: Soft, Tenderness (incisional), Normal Bowel Sounds - Neurological Exam Neurological Exam: Alert, Awake, CN II-XII Intact, Oriented x3 - Psychiatric Exam Psychiatric exam: Normal Affect, Normal Mood - Skin Skin Exam: Dry, Intact, Normal Color, Warm Additional comments: LLE mildly erythematous, improved from yesterday, less peeling of skin Assessment and Plan - Assessment and Plan (Free Text) Assessment: POD#9 s/p bilateral femoral endarterectomy with bilateral femoral and common iliac stents 76 yr old F with PMHx including COPD, HTN, PAD and dyslipidemia s/p surgery. Patient is stable. Continue with PT. Plan: POD #8 s/p bilateral femoral endarterectomy with bilateral femoral and common iliac stents -Pain management as ordered -home medications resumed -smoker- nicotine patch -Rehab as tolerated -Cardiology consult appreciated- Dr. Garcia: pt is stable from cardiac point of view -Diet- Hearty healthy Exfoliative dermatitis of left foot -appreciate podiatry consult. -clobetasol bid DVT prophylaxis -scds for now <James Eli - Last Filed: 06/24/17 16:44> Objective - Vital Signs/Intake and Output Vital Signs (last 24 hours): Temp Pulse Resp BP Pulse Ox 98.2 F 72 20 101/49 L 97 06/24/17 16:29 06/24/17 16:29 06/24/17 16:29 06/24/17 16:29 06/24/17 16:29 - Medications Medications: Current Medications Alprazolam (Xanax) 0.25 mg PO Q12 PRN PRN Reason: Anxiety Stop: 06/28/17 13:30 Last Admin: 06/23/17 08:19 Dose: 0.25 mg Clobetasol Propionate (Temovate Cream) 1 applic TOP BID [facility] Last Admin: 06/24/17 16:36 Dose: 1 units Docusate Sodium (Colace) 100 mg PO BID [facility] Last Admin: 06/24/17 16:36 Dose: 100 mg Enoxaparin Sodium (Lovenox) 40 mg SC DAILY [facility] PRN Reason: Protocol Last Admin: 06/24/17 08:23 Dose: 40 mg Ferrous Sulfate (Feosol) 325 mg PO DAILY [facility] Last Admin: 06/24/17 08:23 Dose: 325 mg Home Med (Travoprost [Travatan Z]) 1 drop OU HS [facility] Last Admin: 06/23/17 21:28 Dose: 1 drop Metoprolol Succinate (Toprol Xl) 50 mg PO HS [facility] Last Admin: 06/23/17 21:27 Dose: 50 mg Nicotine (Nicoderm Cq) 1 patch TD DAILY [facility] Last Admin: 06/24/17 08:23 Dose: 1 patch Tramadol HCl (Ultram) 100 mg PO Q6 PRN PRN Reason: Pain, moderate (4-7) Last Admin: 06/23/17 22:59 Dose: 100 mg - Labs Labs: 06/24/17 06:15 06/19/17 20:47 PT 11.0 Seconds (9.8-13.1) 06/20/17 06:30 INR 1.0 (0.9-1.2) 06/20/17 06:30 APTT 27.7 Seconds (25.6-37.1) 06/20/17 06:30 Attending/Attestation - Attestation I have personally seen and examined this patient.: Yes I have fully participated in the care of the patient.: Yes I have reviewed all pertinent clinical information, including history, physical exam and plan: Yes
[2017-06-24] MEDS: Metoprolol Succinate 50 mg XL Tab PO SCH (21:32)
[2017-06-24] MEDS: Patient's Own Med (Travoprost [Travatan Z] 1 DROP) OU SCH (21:34)
[2017-06-25] MEDS: Enoxaparin 40 mg Syringe SC SCH (09:18)
--- NOTE | 2017-06-25 09:20 | CP.PCM.PN ---
Subjective - Date & Time of Evaluation Date of Evaluation: 06/25/17 Time of Evaluation: 09:00 - Subjective Subjective: Sitting OOB, in good spirits Afebrile Surgical pain mild, contines to resolve Feet are warm BP 120/74 mm Hg HR 68 BPM, reg No rales, no gallop Surgical wound clean, no induration, no discharge Objective - Vital Signs/Intake and Output Vital Signs (last 24 hours): Temp Pulse Resp BP Pulse Ox 97.5 F L 74 20 120/64 99 06/25/17 07:58 06/25/17 07:58 06/25/17 07:58 06/25/17 07:58 06/25/17 07:58 - Medications Medications: Current Medications Alprazolam (Xanax) 0.25 mg PO Q12 PRN PRN Reason: Anxiety Stop: 06/28/17 13:30 Last Admin: 06/23/17 08:19 Dose: 0.25 mg Clobetasol Propionate (Temovate Cream) 1 applic TOP BID [facility] Last Admin: 06/24/17 16:36 Dose: 1 units Docusate Sodium (Colace) 100 mg PO BID [facility] Last Admin: 06/24/17 16:36 Dose: 100 mg Enoxaparin Sodium (Lovenox) 40 mg SC DAILY [facility] PRN Reason: Protocol Last Admin: 06/24/17 08:23 Dose: 40 mg Ferrous Sulfate (Feosol) 325 mg PO DAILY [facility] Last Admin: 06/24/17 08:23 Dose: 325 mg Home Med (Travoprost [Travatan Z]) 1 drop OU [facility] Last Admin: 06/24/17 21:34 Dose: 1 drop Metoprolol Succinate (Toprol Xl) 50 mg PO HS [facility] Last Admin: 06/24/17 21:32 Dose: 50 mg Nicotine (Nicoderm Cq) 1 patch TD DAILY [facility] Last Admin: 06/24/17 08:23 Dose: 1 patch Tramadol HCl (Ultram) 100 mg PO Q6 PRN PRN Reason: Pain, moderate (4-7) Last Admin: 06/24/17 19:57 Dose: 100 mg - Labs Labs: 06/24/17 06:15 06/19/17 20:47 PT 11.0 Seconds (9.8-13.1) 06/20/17 06:30 INR 1.0 (0.9-1.2) 06/20/17 06:30 APTT 27.7 Seconds (25.6-37.1) 06/20/17 06:30
--- NOTE | 2017-06-25 16:43 | CP.PCM.PN ---
<Viji Cotton - Last Filed: 06/25/17 16:45> Subjective - Date & Time of Evaluation Date of Evaluation: 06/25/17 Time of Evaluation: 16:31 - Subjective Subjective: POD# 10 Patient seen and examined bedside. Incision site clean and dry, no erythema or induraiton. No other complaints presently. Doing well in physical therapy. Continue present management. Objective - Vital Signs/Intake and Output Vital Signs (last 24 hours): Temp Pulse Resp BP Pulse Ox 98.1 F 66 20 141/65 95 06/25/17 16:11 06/25/17 16:11 06/25/17 16:11 06/25/17 16:11 06/25/17 16:11 - Medications Medications: Current Medications Alprazolam (Xanax) 0.25 mg PO Q12 PRN PRN Reason: Anxiety Stop: 06/28/17 13:30 Last Admin: 06/25/17 09:18 Dose: 0.25 mg Clobetasol Propionate (Temovate Cream) 1 applic TOP BID [facility] Last Admin: 06/25/17 09:19 Dose: 1 units Docusate Sodium (Colace) 100 mg PO BID [facility] Last Admin: 06/25/17 09:19 Dose: Not Given Enoxaparin Sodium (Lovenox) 40 mg SC DAILY [facility] PRN Reason: Protocol Last Admin: 06/25/17 09:18 Dose: 40 mg Ferrous Sulfate (Feosol) 325 mg PO DAILY [facility] Last Admin: 06/25/17 09:19 Dose: 325 mg Home Med (Travoprost [Travatan Z]) 1 drop OU HS [facility] Last Admin: 06/24/17 21:34 Dose: 1 drop Metoprolol Succinate (Toprol Xl) 50 mg PO HS [facility] Last Admin: 06/24/17 21:32 Dose: 50 mg Nicotine (Nicoderm Cq) 1 patch TD DAILY [facility] Last Admin: 06/25/17 09:19 Dose: 1 patch Tramadol HCl (Ultram) 100 mg PO Q6 PRN PRN Reason: Pain, moderate (4-7) Last Admin: 06/24/17 19:57 Dose: 100 mg - Labs Labs: 06/24/17 06:15 06/19/17 20:47 PT 11.0 Seconds (9.8-13.1) 06/20/17 06:30 INR 1.0 (0.9-1.2) 06/20/17 06:30 APTT 27.7 Seconds (25.6-37.1) 06/20/17 06:30 - Constitutional Appears: Well - Respiratory Exam Respiratory Exam: Decreased Breath Sounds, NORMAL BREATHING PATTERN - Cardiovascular Exam Cardiovascular Exam: REGULAR RHYTHM, +S1, +S2 - GI/Abdominal Exam GI & Abdominal Exam: Soft, Normal Bowel Sounds. absent: Tenderness - Neurological Exam Neurological Exam: Alert, Awake, CN II-XII Intact, Oriented x3 - Psychiatric Exam Psychiatric exam: Normal Affect, Normal Mood - Skin Skin Exam: Dry, Intact, Normal Color, Warm Additional comments: incison bilateral inguinal region, clean and dry. devyn removed. Assessment and Plan - Assessment and Plan (Free Text) Assessment: POD#10 s/p bilateral femoral endarterectomy with bilateral femoral and common iliac stents 76 yr old F with PMHx including COPD, HTN, PAD and dyslipidemia s/p surgery. Patient is stable. Continue present management. Plan: POD #10 s/p bilateral femoral endarterectomy with bilateral femoral and common iliac stents -Pain management as ordered -home medications resumed -smoker- nicotine patch -Rehab as tolerated -Cardiology consult appreciated- Dr. Garcia: pt is stable from cardiac point of view -Diet- Hearty healthy Exfoliative dermatitis of left foot -improved. -appreciate podiatry consult. -clobetasol bid DVT prophylaxis -scds for now <Wu Velasquez - Last Filed: 06/29/17 06:50> Objective - Vital Signs/Intake and Output Vital Signs (last 24 hours): Temp Pulse Resp BP Pulse Ox 98.2 F 83 20 123/57 L 98 06/28/17 20:05 06/28/17 21:10 06/28/17 20:05 06/28/17 21:10 06/28/17 20:05 - Medications Medications: Current Medications Clobetasol Propionate (Temovate Cream) 1 applic TOP BID [facility] Last Admin: 06/28/17 16:56 Dose: 1 units Docusate Sodium (Colace) 100 mg PO BID [facility] Last Admin: 06/28/17 16:55 Dose: 100 mg Enoxaparin Sodium (Lovenox) 40 mg SC DAILY [facility] PRN Reason: Protocol Last Admin: 06/28/17 08:44 Dose: 40 mg Ferrous Sulfate (Feosol) 325 mg PO DAILY [facility] Last Admin: 06/28/17 08:44 Dose: 325 mg Home Med (Travoprost [Travatan Z]) 1 drop OU HS [facility] Last Admin: 06/28/17 21:11 Dose: 1 drop Metoprolol Succinate (Toprol Xl) 50 mg PO HS [facility] Last Admin: 06/28/17 21:10 Dose: 50 mg Nicotine (Nicoderm Cq) 1 patch TD DAILY [facility] Last Admin: 06/28/17 08:44 Dose: 1 patch - Labs Labs: 06/27/17 05:30 06/19/17 20:47 PT 11.0 Seconds (9.8-13.1) 06/20/17 06:30 INR 1.0 (0.9-1.2) 06/20/17 06:30 APTT 27.7 Seconds (25.6-37.1) 06/20/17 06:30 Attending/Attestation - Attestation I have personally seen and examined this patient.: Yes I have fully participated in the care of the patient.: Yes I have reviewed all pertinent clinical information, including history, physical exam and plan: Yes
[2017-06-25] MEDS: Metoprolol Succinate 50 mg XL Tab PO SCH (22:17)
[2017-06-25] MEDS: Patient's Own Med (Travoprost [Travatan Z] 1 DROP) OU SCH (22:19)
[2017-06-26] MEDS: Enoxaparin 40 mg Syringe SC SCH (08:15)
--- NOTE | 2017-06-26 09:58 | CP.PCM.PN ---
Subjective - Date & Time of Evaluation Date of Evaluation: 06/26/17 Time of Evaluation: 09:40 - Subjective Subjective: Sitting OOB, comfortable Surgical clips were mostly removed yesterday (remaing few to be removed today) Afebrile Vital signs stable Both feet warm Objective - Vital Signs/Intake and Output Vital Signs (last 24 hours): Temp Pulse Resp BP Pulse Ox 97.7 F 76 20 132/54 L 92 L 06/26/17 08:23 06/26/17 08:23 06/26/17 08:23 06/26/17 08:23 06/26/17 08:23 - Medications Medications: Current Medications Alprazolam (Xanax) 0.25 mg PO Q12 PRN PRN Reason: Anxiety Stop: 06/28/17 13:30 Last Admin: 06/25/17 09:18 Dose: 0.25 mg Clobetasol Propionate (Temovate Cream) 1 applic TOP BID [facility] Last Admin: 06/26/17 08:15 Dose: 1 units Docusate Sodium (Colace) 100 mg PO BID [facility] Last Admin: 06/26/17 08:14 Dose: Not Given Enoxaparin Sodium (Lovenox) 40 mg SC DAILY [facility] PRN Reason: Protocol Last Admin: 06/26/17 08:15 Dose: 40 mg Ferrous Sulfate (Feosol) 325 mg PO DAILY [facility] Last Admin: 06/26/17 08:15 Dose: 325 mg Home Med (Travoprost [Travatan Z]) 1 drop OU [facility] Last Admin: 06/25/17 22:19 Dose: 1 drop Metoprolol Succinate (Toprol Xl) 50 mg PO HS [facility] Last Admin: 06/25/17 22:17 Dose: 50 mg Nicotine (Nicoderm Cq) 1 patch TD DAILY [facility] Last Admin: 06/26/17 08:15 Dose: 1 patch Tramadol HCl (Ultram) 100 mg PO Q6 PRN PRN Reason: Pain, moderate (4-7) Last Admin: 06/25/17 22:28 Dose: 100 mg - Labs Labs: 06/24/17 06:15 06/19/17 20:47 PT 11.0 Seconds (9.8-13.1) 06/20/17 06:30 INR 1.0 (0.9-1.2) 06/20/17 06:30 APTT 27.7 Seconds (25.6-37.1) 06/20/17 06:30
--- NOTE | 2017-06-26 10:10 | CP.PCM.PN ---
<Joseph Sears - Last Filed: 06/26/17 10:21> Subjective - Date & Time of Evaluation Date of Evaluation: 06/26/17 Time of Evaluation: 10:05 - Subjective Subjective: Pt. seen and examined at bedside sitting upright in chair in no distress. No events overnight. Pt. with no complaints today. Pt. tolerating diet. Pt. progressing well with physical therapy. On ROS, pt. denies any headache, shortness of breath, chest pain, abdominal pain, limb pain, flank pain, dysuria , fever, or chills. Objective - Vital Signs/Intake and Output Vital Signs (last 24 hours): Temp Pulse Resp BP Pulse Ox 97.7 F 76 20 132/54 L 92 L 06/26/17 08:23 06/26/17 08:23 06/26/17 08:23 06/26/17 08:23 06/26/17 08:23 - Medications Medications: Current Medications Alprazolam (Xanax) 0.25 mg PO Q12 PRN PRN Reason: Anxiety Stop: 06/28/17 13:30 Last Admin: 06/25/17 09:18 Dose: 0.25 mg Clobetasol Propionate (Temovate Cream) 1 applic TOP BID [facility] Last Admin: 06/26/17 08:15 Dose: 1 units Docusate Sodium (Colace) 100 mg PO BID [facility] Last Admin: 06/26/17 08:14 Dose: Not Given Enoxaparin Sodium (Lovenox) 40 mg SC DAILY [facility] PRN Reason: Protocol Last Admin: 06/26/17 08:15 Dose: 40 mg Ferrous Sulfate (Feosol) 325 mg PO DAILY [facility] Last Admin: 06/26/17 08:15 Dose: 325 mg Home Med (Travoprost [Travatan Z]) 1 drop OU HS [facility] Last Admin: 06/25/17 22:19 Dose: 1 drop Metoprolol Succinate (Toprol Xl) 50 mg PO HS [facility] Last Admin: 06/25/17 22:17 Dose: 50 mg Nicotine (Nicoderm Cq) 1 patch TD DAILY [facility] Last Admin: 06/26/17 08:15 Dose: 1 patch Tramadol HCl (Ultram) 100 mg PO Q6 PRN PRN Reason: Pain, moderate (4-7) Last Admin: 06/25/17 22:28 Dose: 100 mg - Labs Labs: 06/24/17 06:15 06/19/17 20:47 PT 11.0 Seconds (9.8-13.1) 06/20/17 06:30 INR 1.0 (0.9-1.2) 06/20/17 06:30 APTT 27.7 Seconds (25.6-37.1) 06/20/17 06:30 - Constitutional Appears: Non-toxic, No Acute Distress - Respiratory Exam Respiratory Exam: Clear to Ausculation Bilateral, NORMAL BREATHING PATTERN - Cardiovascular Exam Cardiovascular Exam: REGULAR RHYTHM, +S1, +S2 - GI/Abdominal Exam GI & Abdominal Exam: Soft. absent: Tenderness - Extremities Exam Extremities Exam: absent: Calf Tenderness, Pedal Edema - Neurological Exam Neurological Exam: Alert, Awake, Oriented x3 - Psychiatric Exam Psychiatric exam: Normal Affect, Normal Mood Assessment and Plan - Assessment and Plan (Free Text) Assessment: 76 yr old F with PMHx including COPD, HTN, PAD and dyslipidemia s/p surgery. Patient is stable. Continue present management. Plan: POD #11 s/p bilateral femoral endarterectomy with bilateral femoral and common iliac stents -Pain management as ordered -home medications resumed -smoker- nicotine patch -Rehab as tolerated -Cardiology consult appreciated- Dr. Garcia: pt is stable from cardiac point of view -Diet- Hearty healthy Exfoliative dermatitis of left foot -improved. -appreciate podiatry consult. -clobetasol bid DVT prophylaxis -scds for now <Wu Velasquez - Last Filed: 06/29/17 06:50> Objective - Vital Signs/Intake and Output Vital Signs (last 24 hours): Temp Pulse Resp BP Pulse Ox 98.2 F 83 20 123/57 L 98 06/28/17 20:05 06/28/17 21:10 06/28/17 20:05 06/28/17 21:10 06/28/17 20:05 - Medications Medications: Current Medications Clobetasol Propionate (Temovate Cream) 1 applic TOP BID [facility] Last Admin: 06/28/17 16:56 Dose: 1 units Docusate Sodium (Colace) 100 mg PO BID [facility] Last Admin: 06/28/17 16:55 Dose: 100 mg Enoxaparin Sodium (Lovenox) 40 mg SC DAILY [facility] PRN Reason: Protocol Last Admin: 06/28/17 08:44 Dose: 40 mg Ferrous Sulfate (Feosol) 325 mg PO DAILY [facility] Last Admin: 06/28/17 08:44 Dose: 325 mg Home Med (Travoprost [Travatan Z]) 1 drop OU HS [facility] Last Admin: 06/28/17 21:11 Dose: 1 drop Metoprolol Succinate (Toprol Xl) 50 mg PO HS [facility] Last Admin: 06/28/17 21:10 Dose: 50 mg Nicotine (Nicoderm Cq) 1 patch TD DAILY [facility] Last Admin: 06/28/17 08:44 Dose: 1 patch - Labs Labs: 06/27/17 05:30 06/19/17 20:47 PT 11.0 Seconds (9.8-13.1) 06/20/17 06:30 INR 1.0 (0.9-1.2) 06/20/17 06:30 APTT 27.7 Seconds (25.6-37.1) 06/20/17 06:30 Attending/Attestation - Attestation I have personally seen and examined this patient.: Yes I have fully participated in the care of the patient.: Yes I have reviewed all pertinent clinical information, including history, physical exam and plan: Yes
[2017-06-26] MEDS: Metoprolol Succinate 50 mg XL Tab PO SCH (21:47)
[2017-06-26] MEDS: Patient's Own Med (Travoprost [Travatan Z] 1 DROP) OU SCH (21:48)
[2017-06-27 07:41] LABS: HEMOGLOBIN 8.7 g/dL (12.0-16.0); MEAN CELL VOLUME 90.1 fl (81.0-99.0); MEAN CORPUSCULAR HEMOGLOBIN 30.7 pg (27.0-31.0); MEAN CORPUSCULAR HGB CONC 34.1 g/dL (33.0-37.0); RBC 2.84 Mil/uL (3.80-5.20); RED CELL DISTRIBUTION WIDTH 14.3 % (11.5-14.5)
[2017-06-27 07:56] VITALS: RESP 20
[2017-06-27] MEDS: Enoxaparin 40 mg Syringe SC SCH (09:13)
[2017-06-27] MEDS: Metoprolol Succinate 50 mg XL Tab PO SCH (21:59)
[2017-06-27] MEDS: Patient's Own Med (Travoprost [Travatan Z] 1 DROP) OU SCH (22:07)
[2017-06-28] MEDS: Enoxaparin 40 mg Syringe SC SCH (08:44)
[2017-06-28 20:06] VITALS: O2SAT 98
[2017-06-28] MEDS: Metoprolol Succinate 50 mg XL Tab PO SCH (21:10)
[2017-06-28] MEDS: Patient's Own Med (Travoprost [Travatan Z] 1 DROP) OU SCH (21:11)
[2017-06-29 07:48] VITALS: BP 134/69; PULSE 77; TEMP 97.9
[2017-06-29] MEDS: Enoxaparin 40 mg Syringe SC SCH (08:13)
--- NOTE | 2017-06-29 14:52 | CP.PCM.DIS ---
<Viji Cotton - Last Filed: 06/29/17 14:53> Provider - Provider Date of Admission: 06/19/17 14:21 Attending physician: Wu Velasquez MD Primary care physician: Dr. Velasquez Time Spent in preparation of Discharge (in minutes): 35 Diagnosis - Discharge Diagnosis (1) S/P vascular surgery Status: Resolved Hospital Course - Lab Results Lab Results: Micro Results 06/19/17 20:45 Blood Blood Culture - Final NO GROWTH AFTER 5 DAYS 06/19/17 20:45 Blood Gram Stain - Final TEST NOT PERFORMED 06/19/17 20:30 Blood Blood Culture - Final NO GROWTH AFTER 5 DAYS 06/19/17 20:30 Blood Gram Stain - Final 06/19/17 20:47 Urine,Clean Catch Urine Culture - Final No Growth (<1,000 CFU/ML) Most Recent Lab Values WBC 6.0 K/uL (4.8-10.8) 06/27/17 05:30 RBC 2.84 Mil/uL (3.80-5.20) L 06/27/17 05:30 Hgb 8.7 g/dL (12.0-16.0) L 06/27/17 05:30 Hct 25.6 % (34.0-47.0) L 06/27/17 05:30 MCV 90.1 fl (81.0-99.0) 06/27/17 05:30 MCH 30.7 pg (27.0-31.0) 06/27/17 05:30 MCHC 34.1 g/dL (33.0-37.0) 06/27/17 05:30 RDW 14.3 % (11.5-14.5) 06/27/17 05:30 Plt Count 437 K/uL (130-400) H 06/27/17 05:30 MPV 8.2 fl (7.2-11.7) 06/19/17 20:47 Neut % (Auto) 74.2 % (50.0-75.0) 06/19/17 20:47 Lymph % (Auto) 10.7 % (20.0-40.0) L 06/19/17 20:47 [place] % (Auto) 14.1 % (0.0-10.0) H 06/19/17 20:47 Eos % (Auto) 0.7 % (0.0-4.0) 06/19/17 20:47 Baso % (Auto) 0.3 % (0.0-2.0) 06/19/17 20:47 Neut # 7.6 K/uL (1.8-7.0) H 06/19/17 20:47 Lymph # 1.1 K/uL (1.0-4.3) 06/19/17 20:47 Putnam # 1.5 K/uL (0.0-0.8) H 06/19/17 20:47 Eos # 0.1 K/uL (0.0-0.7) 06/19/17 20:47 Baso # 0.0 K/uL (0.0-0.2) 06/19/17 20:47 PT 11.0 Seconds (9.8-13.1) 06/20/17 06:30 INR 1.0 (0.9-1.2) 06/20/17 06:30 APTT 27.7 Seconds (25.6-37.1) 06/20/17 06:30 Sodium 134 mmol/l (132-148) 06/19/17 20:47 Potassium 3.7 MMOL/L (3.6-5.0) 06/19/17 20:47 Chloride 98 mmol/L (98-107) 06/19/17 20:47 Carbon Dioxide 32 mmol/L (22-30) H 06/19/17 20:47 Anion Gap 8 (10-20) L 06/19/17 20:47 BUN 9 mg/dl (7-17) 06/19/17 20:47 Creatinine 0.7 mg/dL (0.7-1.2) 06/19/17 20:47 Est GFR ( Amer) > 60 06/19/17 20:47 Est GFR (Non-Af Amer) > 60 06/19/17 20:47 Random Glucose 94 mg/dL (65-105) 06/19/17 20:47 Calcium 8.4 mg/dL (8.4-10.2) 06/19/17 20:47 Total Bilirubin 0.6 mg/dl (0.2-1.3) 06/19/17 20:47 AST 27 U/L (14-36) 06/19/17 20:47 ALT 35 U/L (9-52) 06/19/17 20:47 Alkaline Phosphatase 71 U/L (38-126) 06/19/17 20:47 Total Protein 5.4 G/DL (6.3-8.2) L 06/19/17 20:47 Albumin 2.5 g/dL (3.5-5.0) L D 06/19/17 20:47 Globulin 3.0 gm/dL (2.2-3.9) 06/19/17 20:47 Albumin/Globulin Ratio 0.8 (1.0-2.1) L 06/19/17 20:47 - Hospital Course Hospital Course: 76 year old female with past medical history of COPD and PAD who presents to the TCU s/p bilateral femoral endarterectomy with bilateral femoral and common iliac stents, pt had surgery done at [facility], was in the ICU after surgery and completed rehab in TCU. Pt seen and examined at bedside, does not have any complaints. denies any chest pain, dizziness, sob, headaches, nausea or vomiting. Discharge Exam - Head Exam Head Exam: ATRAUMATIC, NORMAL INSPECTION, NORMOCEPHALIC - Eye Exam Eye Exam: EOMI, Normal appearance, PERRL - ENT Exam ENT Exam: Mucous Membranes Moist Additional comments: poor dentition - Respiratory Exam Respiratory Exam: NORMAL BREATHING PATTERN - Cardiovascular Exam Cardiovascular Exam: REGULAR RHYTHM - GI/Abdominal Exam GI & Abdominal Exam: Unremarkable - Neurological Exam Neurological exam: Alert, CN II-XII Intact, Oriented x3 - Psychiatric Exam Psychiatric exam: Normal Affect, Normal Mood - Skin Skin Exam: Normal Color Discharge Plan - Discharge Medications Prescriptions: Alprazolam [Alprazolam Xr] 0.5 mg PO DAILY #30 Ferrous Sulfate [Feosol] 325 mg PO DAILY #30 tab Metoprolol Succinate [Toprol XL] 50 mg PO HS #30 Travoprost [Travatan Z] 1 drop OU HS #1 - Follow Up Plan Condition: GOOD Disposition: HOME/ ROUTINE Instructions: How to Stop Smoking (DC), Peripheral Vascular Stent Placement (DC ) Additional Instructions: Patient will follow up with Dr. Velasquez in clinic. Patient will follow up with Dr. Mcclelland as outpatient for post op visit. Referrals: Wu Velasquez MD [Family Provider] - Dmitry Mcclelland Jr., MD [Medical Doctor] - <EvaWu Bronson - Last Filed: 06/30/17 06:50> Provider - Provider Date of Admission: 06/19/17 14:21 Attending physician: Wu Velasquez MD Hospital Course - Lab Results Lab Results: Micro Results 06/19/17 20:45 Blood Blood Culture - Final NO GROWTH AFTER 5 DAYS 06/19/17 20:45 Blood Gram Stain - Final TEST NOT PERFORMED 06/19/17 20:30 Blood Blood Culture - Final NO GROWTH AFTER 5 DAYS 06/19/17 20:30 Blood Gram Stain - Final 06/19/17 20:47 Urine,Clean Catch Urine Culture - Final No Growth (<1,000 CFU/ML) Most Recent Lab Values WBC 6.0 K/uL (4.8-10.8) 06/27/17 05:30 RBC 2.84 Mil/uL (3.80-5.20) L 06/27/17 05:30 Hgb 8.7 g/dL (12.0-16.0) L 06/27/17 05:30 Hct 25.6 % (34.0-47.0) L 06/27/17 05:30 MCV 90.1 fl (81.0-99.0) 06/27/17 05:30 MCH 30.7 pg (27.0-31.0) 06/27/17 05:30 MCHC 34.1 g/dL (33.0-37.0) 06/27/17 05:30 RDW 14.3 % (11.5-14.5) 06/27/17 05:30 Plt Count 437 K/uL (130-400) H 06/27/17 05:30 MPV 8.2 fl (7.2-11.7) 06/19/17 20:47 Neut % (Auto) 74.2 % (50.0-75.0) 06/19/17 20:47 Lymph % (Auto) 10.7 % (20.0-40.0) L 06/19/17 20:47 [place] % (Auto) 14.1 % (0.0-10.0) H 06/19/17 20:47 Eos % (Auto) 0.7 % (0.0-4.0) 06/19/17 20:47 Baso % (Auto) 0.3 % (0.0-2.0) 06/19/17 20:47 Neut # 7.6 K/uL (1.8-7.0) H 06/19/17 20:47 Lymph # 1.1 K/uL (1.0-4.3) 06/19/17 20:47 [place] # 1.5 K/uL (0.0-0.8) H 06/19/17 20:47 Eos # 0.1 K/uL (0.0-0.7) 06/19/17 20:47 Baso # 0.0 K/uL (0.0-0.2) 06/19/17 20:47 PT 11.0 Seconds (9.8-13.1) 06/20/17 06:30 INR 1.0 (0.9-1.2) 06/20/17 06:30 APTT 27.7 Seconds (25.6-37.1) 06/20/17 06:30 Sodium 134 mmol/l (132-148) 06/19/17 20:47 Potassium 3.7 MMOL/L (3.6-5.0) 06/19/17 20:47 Chloride 98 mmol/L (98-107) 06/19/17 20:47 Carbon Dioxide 32 mmol/L (22-30) H 06/19/17 20:47 Anion Gap 8 (10-20) L 06/19/17 20:47 BUN 9 mg/dl (7-17) 06/19/17 20:47 Creatinine 0.7 mg/dL (0.7-1.2) 06/19/17 20:47 Est GFR ( Amer) > 60 06/19/17 20:47 Est GFR (Non-Af Amer) > 60 06/19/17 20:47 Random Glucose 94 mg/dL (65-105) 06/19/17 20:47 Calcium 8.4 mg/dL (8.4-10.2) 06/19/17 20:47 Total Bilirubin 0.6 mg/dl (0.2-1.3) 06/19/17 20:47 AST 27 U/L (14-36) 06/19/17 20:47 ALT 35 U/L (9-52) 06/19/17 20:47 Alkaline Phosphatase 71 U/L (38-126) 06/19/17 20:47 Total Protein 5.4 G/DL (6.3-8.2) L 06/19/17 20:47 Albumin 2.5 g/dL (3.5-5.0) L D 06/19/17 20:47 Globulin 3.0 gm/dL (2.2-3.9) 06/19/17 20:47 Albumin/Globulin Ratio 0.8 (1.0-2.1) L 06/19/17 20:47 Attending/Attestation - Attestation I have personally seen and examined this patient.: Yes I have fully participated in the care of the patient.: Yes I have reviewed all pertinent clinical information, including history, physical exam and plan: Yes
== END 2017-06-29 13:05 | disposition home or self-care (01) | DRG 950 ==
LOC: H.TCU 14:21
PROVIDERS: ADMIT Family Medicine; ATTEND Family Medicine
PROC: F07Z9FZ Gait Training/Functional Ambulation Treatment using Assistive, Adaptive, Supportive or Protective Equipment (ICD-10-PCS; principal; 2017-06-19)
PROC: F08Z4FZ Home Management Treatment using Assistive, Adaptive, Supportive or Protective Equipment (ICD-10-PCS; 2017-06-19)
PROC: F07L6FZ Therapeutic Exercise Treatment of Musculoskeletal System - Lower Back / Lower Extremity using Assistive, Adaptive, Supportive or Protective Equipment (ICD-10-PCS; 2017-06-20)
PROC: 0HBRXZZ Excision of Toe Nail, External Approach (ICD-10-PCS; 2017-06-23)
PROC: 0HBRXZZ Excision of Toe Nail, External Approach (ICD-10-PCS; 2017-06-23)
PROC: 0HBRXZZ Excision of Toe Nail, External Approach (ICD-10-PCS; 2017-06-23)
PROC: 0HBRXZZ Excision of Toe Nail, External Approach (ICD-10-PCS; 2017-06-23)
PROC: 0HBRXZZ Excision of Toe Nail, External Approach (ICD-10-PCS; 2017-06-23)
DX: Z48.812 Encounter for surgical aftercare following surgery on the circulatory system (principal); J44.9 Chronic obstructive pulmonary disease, unspecified; I12.9 Hypertensive chronic kidney disease with stage 1 through stage 4 chronic kidney disease, or unspecified chronic kidney disease; B35.1 Tinea unguium; E78.5 Hyperlipidemia, unspecified; F17.210 Nicotine dependence, cigarettes, uncomplicated; M81.0 Age-related osteoporosis without current pathological fracture; N18.9 Chronic kidney disease, unspecified; I25.10 Atherosclerotic heart disease of native coronary artery without angina pectoris; I73.9 Peripheral vascular disease, unspecified; L26 Exfoliative dermatitis; H40.9 Unspecified glaucoma; Z87.442 Personal history of urinary calculi; Z98.62 Peripheral vascular angioplasty status; Z90.49 Acquired absence of other specified parts of digestive tract; Z88.0 Allergy status to penicillin; Z88.2 Allergy status to sulfonamides

== ENCOUNTER 2018-09-26 09:45 | Emergency (ER) | payer MEDICARE, BC ==
[2018-09-26 10:09] VITALS: BMI 19.3
[2018-09-26 10:31] VITALS: RESP 18; O2SAT 99
--- NOTE | 2018-09-26 11:36 | ED PDOC ---
Lower Extremity Pain/Injury Time Seen by Provider: 09/26/18 10:05 Chief Complaint (Nursing): Lower Extremity Problem/Injury Chief Complaint (Provider): left leg and foot pain History Per: Patient History/Exam Limitations: no limitations Onset/Duration Of Symptoms: Days (1-2 weeks), Gradual Current Symptoms Are (Timing): Still Present Severity: Moderate Additional History Per: Prior Records Additional Complaint(s): 77yo female history significant for PAD requiring stents/endarterectomy 2016 Dr Krystin son PRBC transfusions required, now presents from Dr Woodson podiatry recommendation for ischemia at rest of left foot. Patient notes worsening pain L foot, denies new trauma, fever. Ambulating w pain. Past Medical History Reviewed: Historical Data, Nursing Documentation, Vital Signs Vital Signs: Last Vital Signs Temp 97.0 F L 09/26/18 10:17 Pulse 88 09/26/18 10:17 Resp 18 09/26/18 10:17 BP 117/70 09/26/18 10:17 Pulse Ox 99 09/26/18 10:17 - Medical History PMH: Anxiety, Cardia Arrhythmia, COPD, HTN, Kidney Stones, Peripheral Edema, Chronic Kidney Disease Denies: HIV Other PMH: PAD - Surgical History Surgical History: Cholecystectomy Other surgeries: lower ext stents w endartectomy - Family History Family History: States: Unknown Family Hx - Social History Current smoker - smoking cessation education provided: Yes - Immunization History Hx Tetanus Toxoid Vaccination: No Hx Influenza Vaccination: No Hx Pneumococcal Vaccination: No - Home Medications Home Medications: Ambulatory Orders Medication Instructions Recorded Aspirin [Kershaw Aspirin] 81 mg PO DAILY 09/16/16 Alprazolam [Alprazolam Xr] 0.5 mg PO DAILY #30 06/29/17 Ferrous Sulfate [Feosol] 325 mg PO DAILY #30 tab 06/29/17 Metoprolol Succinate XL [Toprol XL] 50 mg PO HS #30 06/29/17 Travoprost [Travatan Z] 1 drop OU HS #1 06/29/17 Clindamycin [Cleocin] 300 mg PO TID #21 cap 09/26/18 - Allergies Allergies/Adverse Reactions: Allergies Allergy/AdvReac Type Severity Reaction Status Date / Time Sulfa (Sulfonamide Allergy Intermediate RASH Verified 05/14/17 10:07 Antibiotics) meperidine HCl [From Demerol] AdvReac Intermediate RASH Verified 05/14/17 10:07 Penicillins AdvReac Intermediate RASH Verified 05/14/17 10:07 sulfacetamide sodium AdvReac Intermediate RASH Verified 05/14/17 10:07 [From Sulfacet-R] sulfur [From Sulfacet-R] AdvReac Intermediate RASH Verified 05/14/17 10:07 Review of Systems ROS Statement: Except As Marked, All Systems Reviewed And Found Negative Constitutional: Negative for: Fever Cardiovascular: Negative for: Chest Pain Respiratory: Negative for: Shortness of Breath Gastrointestinal: Negative for: Abdominal Pain Genitourinary Female: Negative for: Frequency Musculoskeletal: Positive for: Leg Pain, Foot Pain. Negative for: Neck Pain, Arm Pain Skin: Negative for: Rash, Lesions Neurological: Negative for: Weakness, Numbness, Headache Psych: Negative for: Anxiety Physical Exam - Reviewed Nursing Documentation Reviewed: Yes Vital Signs Reviewed: Yes - Physical Exam Appears: Positive for: Well, Non-toxic, No Acute Distress Head Exam: Positive for: ATRAUMATIC, NORMAL INSPECTION, NORMOCEPHALIC Skin: Positive for: Normal Color, Warm, DRY Eye Exam: Positive for: EOMI, Normal appearance, PERRL ENT: Positive for: Normal ENT Inspection Neck: Positive for: Normal, Painless ROM Cardiovascular/Chest: Positive for: Regular Rate, Rhythm Respiratory: Positive for: CNT, Normal Breath Sounds Gastrointestinal/Abdominal: Positive for: Soft. Negative for: Tenderness, Gu arding Back: Positive for: Normal Inspection Extremity: Positive for: Normal ROM Neurologic/Psych: Positive for: Alert, Oriented. Negative for: Motor/Sensory Deficits - Laboratory Results Result Diagrams: 09/26/18 11:25 09/26/18 11:25 - ECG O2 Sat by Pulse Oximetry: 99 Medical Decision Making Medical Decision Making: labs unremarkable XRays no gas, +osteopenia Podiatry saw patient and d/w Dr Woodson podiatry who will see her in office thursday, rec changing Abx to clinda for possible Allergic Rxn. Dr Woodson will get her to Dr Otto this week. Prelim sono report reviewed, mono phasic flow to DP/PT, occluded SFA patient takes ASA 81mg daily Given tylenol for mild pain but she is ambulating without difficulty. Rec benadryl for itch prn but caution for drowsiness. Patient does not want to stay in hospital, offered obs for vascular consult. Disposition - Clinical Impression Clinical Impression: Peripheral arterial disease, Allergic reaction - Patient ED Disposition Is Patient to be Admitted: No Counseled Patient/Family Regarding: Studies Performed, Diagnosis, Need For Followup - Disposition Referrals: Franck Woodson DPM [Staff Provider] - Holden Otto MD [Staff Provider] - Disposition: Routine/Home Disposition Time: 13:35 Condition: STABLE Additional Instructions: Stop taking Cipro and start Clindamycin 300mg 3x daily as directed. See Dr Woodson sharan as scheduled, call Dr Otto office and state you need an appointment for vascular evaluation. Return to ER for any worse pain, weakness, fever, swelling, worsening redness or rash, or any concern. Prescriptions: Clindamycin [Cleocin] 300 mg PO TID #21 cap Instructions: Peripheral Artery Disease and Claudication, Drug Allergy Forms: [facility] ([place]ian) - POA Present On Arrival: None
[2018-09-26 11:42] LABS: BASO # 0.1 K/uL (0.0-0.2); BASO % 1.1 % (0.0-2.0); EOS # 0.1 K/uL (0.0-0.7); EOS % 1.3 % (0.0-4.0); LYMPH # 1.3 K/uL (1.0-4.3); MEAN CELL VOLUME 89.3 fl (81.0-99.0); MEAN CORPUSCULAR HEMOGLOBIN 29.4 pg (27.0-31.0); MEAN CORPUSCULAR HGB CONC 32.9 g/dL (33.0-37.0); MEAN PLATELET VOLUME 8.1 fl (7.2-11.7); MONO # 0.9 K/uL (0.0-0.8); MONO % 13.6 % (0.0-10.0); NEUT # 4.3 K/uL (1.8-7.0); RBC 4.43 Mil/uL (3.80-5.20); RED CELL DISTRIBUTION WIDTH 14.9 % (11.5-14.5); WHITE BLOOD COUNT 6.6 K/uL (4.8-10.8)
--- NOTE | 2018-09-26 11:49 | RAD ---
Date of service: 09/26/2018 HISTORY: ischemia foot COMPARISON: None available. FINDINGS: BONES: SEVERE OSTEOPENIA NO FRACTURE. JOINTS: Normal. No osteoarthritis. SOFT TISSUE: LATERAL MALLEOLAR SOFT TISSUE SWELLING OTHER FINDINGS: None . IMPRESSION: LATERAL MALLEOLAR SOFT TISSUE SWELLING. NO FRACTURE.
[2018-09-26 11:51] LABS: ALB/GLOB RATIO 0.9 (1.0-2.1); ALBUMIN 3.9 g/dL (3.5-5.0); ALT/SGPT 22 U/L (9-52); AST/SGOT 29 U/L (14-36); BLOOD UREA NITROGEN 14 mg/dl (7-17); CALCIUM 9.5 mg/dL (8.4-10.2); GFR NON-AFRICAN AMERICAN > 60
--- NOTE | 2018-09-26 11:51 | RAD ---
Date of service: 09/26/2018 PROCEDURE: Left Foot Radiographs. HISTORY: ischemia foot COMPARISON: None. FINDINGS: BONES: Normal. No fracture. Osteopenia. JOINTS: Normal. SOFT TISSUES: Normal. OTHER FINDINGS: None. IMPRESSION: Normal left foot radiographs. Osteopenia.
--- NOTE | 2018-09-26 14:18 | CP.PCM.CON ---
History of Present Illness - History of Present Illness History of Present Illness: Podiatry consult note for Dr. Woodson, 77 y/o female with history significant for PAD requiring stents/endarterectomy 2016 Dr Krystin son PRBC transfusions required, now presents to the ED due to pain to the left lateral foot and ankle. Patient states she is a patient of Dr. Woodson's, who referred patient to Dr. Otto for vascular intervention. Patient states she was unable to get an appointment with Dr. Otto. Patient states her pain was unbearable at this time and she came to the ED. Patient denies new trauma, fever, nausea, vomiting, SOB, or chest pain. Patient does not dress the wound daily. Patient has significant smoking history. Patient also states she went to another [facility] who prescribed Patient Ciprofloxacin. Patient states she took medication for 1 week and then stopped due to an allergic reaction. Review of Systems - Review of Systems All systems: reviewed and no additional remarkable complaints except Review of Systems: As per HPI Past Patient History - Past Medical History & Family History Past Medical History?: Yes - Past Social History Smoking Status: Heavy Smoker > 10 Cigarettes Daily - CARDIAC Hx Cardia Arrhythmia: Yes Hx Hypertension: Yes Hx Peripheral Edema: Yes - PULMONARY Hx Chronic Obstructive Pulmonary Disease (COPD): Yes - NEUROLOGICAL Hx Neurological Disorder: No - HEENT Hx HEENT Problems: Yes Hx Cataracts: Yes Hx Glaucoma: Yes - RENAL Hx Chronic Kidney Disease: Yes Hx Kidney Stones: Yes - ENDOCRINE/METABOLIC Hx Endocrine Disorders: No - HEMATOLOGICAL/ONCOLOGICAL Hx Human Immunodeficiency Virus (HIV): No - INTEGUMENTARY Hx Dermatological Problems: No - GASTROINTESTINAL Hx Gastrointestinal Disorders: No - GENITOURINARY/GYNECOLOGICAL Hx Genitourinary Disorders: No - PSYCHIATRIC Hx Anxiety: Yes - SURGICAL HISTORY Hx Cholecystectomy: Yes - ANESTHESIA Hx Anesthesia: Yes Hx Anesthesia Reactions: No Hx Malignant Hyperthermia: No Meds Home Medications: Home Medication List Medication Instructions Recorded Confirmed Type Clindamycin [Cleocin] 300 mg PO TID #21 cap 09/26/18 Rx Allergies/Adverse Reactions: Allergies Allergy/AdvReac Type Severity Reaction Status Date / Time Sulfa (Sulfonamide Allergy Intermediate RASH Verified 05/14/17 10:07 Antibiotics) meperidine HCl [From Demerol] AdvReac Intermediate RASH Verified 05/14/17 10:07 Penicillins AdvReac Intermediate RASH Verified 05/14/17 10:07 sulfacetamide sodium AdvReac Intermediate RASH Verified 05/14/17 10:07 [From Sulfacet-R] sulfur [From Sulfacet-R] AdvReac Intermediate RASH Verified 05/14/17 10:07 Physical Exam - Constitutional Appears: Well, Non-toxic, No Acute Distress - Head Exam Head Exam: ATRAUMATIC, NORMOCEPHALIC - Extremities Exam Additional comments: Left Lower Extremity VASC: DP and PT non-palpable to the left lower extremity, CFT less than 3 seconds X 10, TG warm to warm, minimal non-pitting edema to the left ankle NEURO: grossly intact DERM: moderate erythema noted at the left lateral ankle with no open wounds, erythema proximal to the ankle extending distally to the dorsal midfoot circumferentially, minimal weeping noted to the lateral ankle, no malodor, no significant drainage, no probe to bone ORTHO: pain on palpation, MSK 5/5 - Neurological Exam Neurological exam: Alert, Oriented x3 - Psychiatric Exam Psychiatric exam: Normal Affect, Normal Mood Results - Vital Signs Recent Vital Signs: Last Vital Signs Temp 97.0 F L 09/26/18 10:17 Pulse 88 09/26/18 10:17 Resp 18 09/26/18 10:17 BP 117/70 09/26/18 10:17 Pulse Ox 99 09/26/18 13:44 - Labs Result Diagrams: 09/26/18 11:25 09/26/18 11:25 Labs: Laboratory Results - last 24 hr 09/26/18 09/26/18 11:25 11:25 WBC 6.6 RBC 4.43 Hgb 13.0 D Hct 39.5 MCV 89.3 MCH 29.4 MCHC 32.9 L RDW 14.9 H Plt Count 258 D MPV 8.1 Neut % (Auto) 65.0 Lymph % (Auto) 19.0 L [place] % (Auto) 13.6 H Eos % (Auto) 1.3 Baso % (Auto) 1.1 Neut # (Auto) 4.3 Lymph # (Auto) 1.3 [place] # (Auto) 0.9 H Eos # (Auto) 0.1 Baso # (Auto) 0.1 Sodium 139 Potassium 4.1 Chloride 103 Carbon Dioxide 30 Anion Gap 10 BUN 14 Creatinine 0.7 Est GFR ( Amer) > 60 Est GFR (Non-Af Amer) > 60 Random Glucose 80 Calcium 9.5 Total Bilirubin 0.3 AST 29 ALT 22 Alkaline Phosphatase 82 Total Protein 8.1 Albumin 3.9 Globulin 4.2 H Albumin/Globulin Ratio 0.9 L Assessment & Plan - Assessment and Plan (Free Text) Assessment: 77 y/o female with history significant for PAD now presents to the ED due to pain to the left lateral foot and ankle. Plan: Patient seen and evaluated at bedside Plan discussed with attending Dr. Woodson Chart, labs and vitals all reviewed Patient labs within normal limits- afebrile and absent leukocytosis Left Foot X-ray: moderate soft tissue swelling, no acute osseous changes, no fractures Patient would not like to be admitted at this time and denies a dressing application due to discomfort Patient to follow up with Dr. Woodson in his office on Thursday, patient has a scheduled appointment Patient Rx Clindamycin 300 mg TID X 10 days Patient demonstrated verbal understanding Patient thoroughly explained to return to ED if symptoms worsen Thank you for the podiatry consult - Date & Time Date: 09/26/18 (n) Time: 14:27
[2018-09-26 14:57] VITALS: BP 112/68; PULSE 77; TEMP 97.8
--- NOTE | 2018-09-27 14:36 | US ---
Date of service: 09/26/2018 PROCEDURE: Duplex ultrasound of the left lower extremity arteries. HISTORY: L foot pain COMPARISON: None available. TECHNIQUE: Grayscale and duplex Doppler evaluation of the left common femoral, superficial femoral, popliteal, posterior tibial and dorsalis pedis arteries was performed.. FINDINGS: COMMON FEMORAL ARTERY: Patent. Maximal flow velocity of 162.9 cm/s. SUPERFICIAL FEMORAL ARTERY: The mid and distal portion is occluded POPLITEAL ARTERY:Patent demonstrate monophasic waveform. Maximal flow velocity of 58.1 cm/s. POSTERIOR TIBIAL ARTERY: Patent. Maximal flow velocity of 66.9 cm/s. DORSALIS PEDIS ARTERY: Patent. Maximal flow velocity of 36.5 cm/s. OTHER FINDINGS: None. IMPRESSION: The mid and distal portions of left superficial femoral artery are occluded. Moderate diffuse atherosclerotic disease associated with mural thickening and small calcified plaques.
== END 2018-09-26 14:55 | disposition home or self-care (01) ==
LOC: H.ER 09:45
DX: I73.9 Peripheral vascular disease, unspecified (principal); T78.40XA Allergy, unspecified, initial encounter; I12.9 Hypertensive chronic kidney disease with stage 1 through stage 4 chronic kidney disease, or unspecified chronic kidney disease